=== PATIENT | female | born 1945 | race Caucasian/White ===

== ENCOUNTER → 2019-05-12 15:33 | Outpatient (CLI) | payer MEDICARE, SELFPAY ==
--- NOTE | 2019-05-12 15:46 | XR_ITS ---
XR hip RT 2-3V w/pelvis HISTORY: ITS.REASON: RT HIP PAIN,SLIPPED 05/07/19 ORDERING PHYSICIAN: Prosper Palacio PATIENT AGE: 73 years COMPARISON: None FINDINGS: No fracture or dislocation is evident. No significant degenerative change. No lytic or blastic change. Unremarkable soft tissues there is loss of disc space height with marginal spurring the lumbar spine at L4-5. IMPRESSION: No acute process involving the right hip or proximal right femur. L4-5 chronic degenerative disc disease.
== END ==
PROVIDERS: PCP Internal Medicine; Visit Provider Internal Medicine
DX: M25.551 Pain in right hip (principal)
CPT/HCPCS: 73502

== ENCOUNTER 2020-06-28 21:40 | Emergency (ER) | payer MEDICARE, SELFPAY ==
--- NOTE | 2020-06-28 21:54 | XR_ITS ---
PROCEDURE: XR KNEE LT 3V Referring Doctor: Felicity Madrigal Patient Age:74Y CLINICAL INDICATION: fall, left knee pain injury 20 minutes prior to ER arrival. Left knee pain pain posterior aspect of knee most pronounced. Legs feel swollen COMPARISON: No prior left knee studies CR LLR LOWER LEG-RT from 10/07/2016 CR [id number] KNEE-3 VIEWS-RT from 10/07/2016 FINDINGS: LEFT KNEE 3 view: AP lateral and oblique nonweightbearing performed today. No previous studies of the left knee but the are previous right knee studies for comparison with similar findings Obese appearing,large patient with degenerative changes at the left knee most pronounced at the medial compartment. Joint space narrowing the medial compartment with sclerosis bout the narrowed joint space here on this nonweightbearing film. Generous tricompartmental marginal osteophytes including some partially fragmented marginal osteophytes at the patellofemoral joint which appears old. Also note a particularly exuberant marginal osteophytes posteriorly as well as along the margins of the medial compartment. . Suspect mild to moderate joint effusion suprapatellar bursa.. no acute fracture or dislocation. No lytic or blastic change. There is normal mineralization. IMPRESSION: No acute fracture nor dislocation Prominent Degenerative Changes left knee: Most evident about the narrowed medial compartment Exuberant tricompartmental marginal osteophytes most evident about the patellofemoral joint and medial compartment. Large patient Suspect mild joint effusion suprapatellar bursa Dictated by: Nakul Alaniz MD 06/29/2020 17:07 Nakul Alaniz MD in [place] 06/29/2020 17:07
[2020-06-28 21:57] VITALS: BP 176/81; PULSE 109; RESP 18; TEMP 36.7; O2SAT 96; BMI 46.0
--- NOTE | 2020-06-28 21:57 | HMH.EDGENADL ---
ED Disposition Clinical Impression: Hematoma Disposition: Home, Self-Care Condition on Discharge: Good Instructions: How to Prevent Falls Referrals: Prosper Palacio [Primary Care Provider] - - Critical Care Critical Care Time: No Attestation: On 06/28/20, the high probability of a clinically significant, sudden or life threatening deterioration of the following system(s) required my full and direct attention, intervention and personal management. The time I documented below is in addition to time spent performing reported procedures but includes the following listed in this critical care notation. Medical Decision Making - Medical Records Medical records reviewed: Yes: I reviewed the patient's medical records. - Sunny Inquiry Pt receiving controlled substance: No Vital Signs: 06/28/20 21:57 06/28/20 22:00 06/28/20 23:07 Temperature 98.1 F Temperature Source Oral Pulse Rate Pulse Rate [Left Brachial] 109 H 98 H 100 H Respiratory Rate 18 17 18 Blood Pressure Blood Pressure [Left Arm] 176/81 H 128/68 114/82 Blood Pressure Mean [Left Arm] 112 88 92 Blood Pressure Source Blood Pressure Source [Left Arm] Automatic Cuff Automatic Cuff Automatic Cuff Blood Pressure Position Blood Pressure Position [Left Arm] Sitting Supine Sitting 02 Sat by Pulse Oximetry 96 95 98 Oxygen Delivery Method Room Air Room Air 06/28/20 23:41 06/28/20 23:57 Temperature 98.1 F Temperature Source Oral Pulse Rate 95 H Pulse Rate [Left Brachial] 97 H Respiratory Rate 17 17 Blood Pressure 152/76 H Blood Pressure [Left Arm] 150/78 H Blood Pressure Mean [Left Arm] 102 Blood Pressure Source Automatic Cuff Blood Pressure Source [Left Arm] Automatic Cuff Blood Pressure Position Sitting Blood Pressure Position [Left Arm] Sitting 02 Sat by Pulse Oximetry 98 Oxygen Delivery Method Room Air - Lab Data Lab Results 06/28/20 22:43: WBC 6.3, RBC 4.76, Hgb 14.1, Hct 42.1, MCV 88.4, MCH 29.6, MCHC 33.5, RDW 13.9, Plt Count 245, MPV 8.3, Neut % (Auto) 73.8, Lymph % (Auto) 15.6, [place] % (Auto) 5.2, Eos % (Auto) 4.9, Baso % (Auto) 0.5, Neut # (Auto) 4.7, Lymph # (Auto) 1.0, [place] # (Auto) 0.3, Eos # (Auto) 0.3, Baso # (Auto) 0.0 06/28/20 22:43: Sodium 140, Potassium 4.5, Chloride 101, Carbon Dioxide 28, Anion Gap 15.5 H, BUN 33 H, Creatinine 1.30 H, Estimated Creat Clear 31, Estimated GFR 40 L, Est GFR ( Amer) 48 L, Glucose 159 H, Calcium 9.4, Total Bilirubin 0.4, AST 39 H, ALT 21, Alkaline Phosphatase 52, Total Protein 7.2, Albumin 4.2, Globulin 3.0, Albumin/Globulin Ratio 1.4 Result diagrams: 06/28/20 22:43 06/28/20 22:43 Orders (Tests/Meds): ED MEDICATIONS Discontinued Medications Generic Name Dose Route Start Last Admin Trade Name Freq PRN Reason Stop Dose Admin Ioversol 75 ml 06/28/20 23:42 06/28/20 23:43 Rad-Optiray 350 100ml Vial IV 06/28/20 23:43 75 ml ONCE ONE Administration Protocol Sodium Chloride 10 ml 06/28/20 23:42 06/28/20 23:43 Rad-Saline Flush 10ml Syringe IV 06/28/20 23:43 10 ml ONCE ONE Administration ORDERS Category Date Time Status CT abdomen pelvis w con Stat Cat Scan 06/28/20 22:37 Taken Knee XR left 3 views [XR knee LT 3V] Stat Exams 06/28/20 21:54 Taken Medical Decision Narrative: The patient is a 74 year old female who presents after fall. The patient arrives awake, alert, stable. She has a lower abdominal wall hematoma with some tenderness. Also complains of some knee pain. X-ray of the knee unremarkable by my read other than some sever chronic OA. On reexamination patient complaining of increased suprapubic pain, it was felt that work up including labs and CT abdomen / pelvis should be obtained to evaluate for intraabdominal injury. CT scan was unremarkable except for incidental findings which do not require follow up (renal cysts, etc). Patient was discharged home with return precautions. General Adult HPI - General Stated
[2020-06-28 22:00] VITALS: BP 128/68; PULSE 98; RESP 17; O2SAT 95
--- NOTE | 2020-06-28 22:30 | PC.NURSE ---
RETURN FROM XRAY.
--- NOTE | 2020-06-28 22:37 | CT_ITS ---
Procedure: CT ABDOMEN PELVIS W CON Referring Doctor: Felicity Madrigal Patient Age:74Y CLINICAL INDICATION: fall, lower abd pain w abdominal wall hematoma Trauma lower abdomen fell on ballof the trailer hitch, a large abdominal wall hematoma below umbilicus, lower abdominal pain. COMPARISON: No exams were available for comparison TECHNIQUE: IV contrast utilized: 75 cc Optiray 350 . No enteric contrast Helical the the the the the axial images obtained with sagittal and coronal reformats. All CT scans at the facility use one or more dose reduction, viz: automated exposure control, ma/kV adjustment per patient size (including targeted exams where dose is matched to indication, i.e. head), or iterative reconstruction technique. FINDINGS: Lower thorax: No acute finding 6 mm calcified granuloma LLL left lung base. Heart normal size 2 ABDOMEN: No acute post-traumatic changes;. Solid organs appear intact and satisfactory on this postcontrast study. Liver: No acute findings. No masses or biliary dilatation. 15 mm benign-appearing hepatic cyst at right lobe, axial image 25. Measures fluid density. Gallbladder: Nondistended. No radio opaque stones. Common duct unremarkable Pancreas: No masses or peripancreatic fluid collections. Spleen: Intact. No acute findings. Granulomatous calcifications. E Adrenals: . adrenals generous bilaterally Right adrenal the 12 mm AP, 12 mm height subtle right adrenal nodule appears most likely benign adenoma, given its central low-density. tract ======= Kidneys/ureters: No acute findings. No calculi or obstruction. Numerous small bilateral renal cysts. Mild diffuse cortical thinning likely Right kidney: Numerous tiny cyst none measuring over 1 cm. The most notable cyst at upper pole posteriorly measures just less than 9 mm. Left kidney.:. Numerous tiny cysts, with largest measuring up to 8 mm at upper pole and mid left kidney. There is either a duplicated collecting system or parapelvic cyst accounting for the additional 2 cm fluid the focus at the inferior aspect left renal pelvis. No urinary tract calculi nor obstruction evident PELVIS: Small postmenopausal uterus.. No adnexal masses. No free fluid Bladder: Nondistended. No obvious stones or masses. GI tract: ===== Stomach: Upper normal wall thickness along lateral aspect/greater curvature of stomach-most likely reflecting lack of distension. Small bowel: Nondistended. Unremarkable no obvious mass or thickening. No evidence of appendicitis. Unremarkable base of appendix visualized Large bowel: Minimal stool. Colonic diverticulosis most evident at descending colon and sigmoid. Fatty infiltration of the right colon-nonspecific but can reflect chronic inflammation no current inflammatory process Peritoneum: No abnormal fluid collections. No obvious inflammatory changes. No free air. Lymph nodes: No enlarged lymph nodes apparent. The Vasculature: No evidence of abdominal aortic aneurysm. No retroperitoneal hemorrhage evident. Bones: No acute fracture multilevel degenerative disc changes, and spondylosis lumbar spine.. Multilevel facet hypertrophy. The the yields spinal stenosis most evident L3/4 in the L4/5. Transitional vertebra at lumbosacral junction Abdominal wall: A generous size hematoma with stranding LLQ seen involving the subcutaneous fat of the panniculus LLQ. The the hematoma itself measuring up to near 8 cm height and with and less than 2 cm AP. There is stranding and edema throughout this region and surrounding this central area reflecting the associated region of trauma and bruising. Minor associated edematous skin thickening period. . Small umbilical hernia also noted IMPRESSION:
[2020-06-28 22:51] LABS: Basophils % 0.5 % (0.1-2.0); Eosinophils # 0.3 K/mm3 (0.0-0.4); Eosinophils % 4.9 % (0.1-12.0); Hematocrit 42.1 % (37.0-47.0); Hemoglobin 14.1 g/dL (12.2-16.2); Lymphocytes % 15.6 % (10-50); Mean Corpuscular HGB Conc 33.5 g/dL (31.8-35.4); Mean Corpuscular Hemoglobin 29.6 pg (27.0-31.2); Mean Corpuscular Volume 88.4 fl (81-99); Mean Platelet Volume 8.3 fl (7.4-10.4); Monocytes # 0.3 K/mm3 (0.1-1.0); Monocytes % 5.2 % (1.7-9.3); Neutrophils # 4.7 K/mm3 (1.8-7.8); Neutrophils % 73.8 % (37.0-80.0); Platelet Count 245 K/mm3 (142-424); Red Blood Count 4.76 M/mm3 (4.20-5.40); Red Cell Distribution Width 13.9 % (11.5-17.5); White Blood Count 6.3 K/mm3 (4.8-10.8)
[2020-06-28 23:00] LABS: Alanine Aminotransferase 21 U/L (12-78); Albumin Level 4.2 g/dl (3.5-5.0); Albumin/Globulin Ratio 1.4 (1.1-1.8); Alkaline Phosphatase 52 U/L (38-126); Anion Gap 15.5 mEq/L (5-15); Aspartate Amino Transferase 39 U/L (14-36); Bilirubin,Total 0.4 mg/dl (0.2-1.3); Blood Urea Nitrogen 33 mg/dl (7-17); Calcium 9.4 mg/dl (8.4-10.2); Carbon Dioxide 28 mmol/L (22.0-30.0); Chloride 101 mmol/L (98-107); Creatinine Clearance Estimated 31 mL/min (50-200); Estimated Glomerular Filt Rate 40 ml/min (>60); GFR (African American) 48 ML/MIN (>60); Glucose 159 mg/dl (74-100); Potassium 4.5 mmoL/L (3.5-5.1); Sodium 140 mmol/L (136-145); Total Protein,Serum 7.2 g/dl (6.3-8.2)
[2020-06-28 23:07] VITALS: BP 114/82; PULSE 100; RESP 18; O2SAT 98
[2020-06-28 23:41] VITALS: BP 150/78; PULSE 97; RESP 17; O2SAT 98
[2020-06-28 23:57] VITALS: BP 152/76; PULSE 95; RESP 17; TEMP 36.7; O2SAT 97
== END 2020-06-29 00:03 | disposition home or self-care (01) ==
PROVIDERS: Emergency Provider Emergency Medicine; PCP Internal Medicine
DX: S30.1XXA Contusion of abdominal wall, initial encounter (principal); M25.562 Pain in left knee; W01.198A Fall on same level from slipping, tripping and stumbling with subsequent striking against other object, initial encounter; Y92.018 Other place in single-family (private) house as the place of occurrence of the external cause; E78.5 Hyperlipidemia, unspecified; I10 Essential (primary) hypertension; Z79.899 Other long term (current) drug therapy
CPT/HCPCS: 73562; 74177; 80053; 85025; 99283; Q9967

== ENCOUNTER → 2021-07-18 11:39 | Outpatient (CLI) | payer MEDICARE, SELFPAY | PROVIDERS: PCP Internal Medicine; Visit Provider Nurse Practitioner | DX: Z20.822 Contact with and (suspected) exposure to COVID-19 (principal) | CPT/HCPCS: C9803; U0003; U0005 ==

== ENCOUNTER → 2021-09-03 13:33 | Outpatient (CLI) | payer MEDICARE, SELFPAY ==
[2021-09-03 15:45] LABS: Alanine Aminotransferase 21 U/L (12-78); Albumin Level 3.9 g/dl (3.5-5.0); Albumin/Globulin Ratio 1.8 (1.1-1.8); Alkaline Phosphatase 42 U/L (38-126); Anion Gap 14.7 mEq/L (5-15); Aspartate Amino Transferase 30 U/L (14-36); Bilirubin,Total 0.4 mg/dl (0.2-1.3); Blood Urea Nitrogen 36 mg/dl (7-17); Calcium 9.1 mg/dl (8.4-10.2); Carbon Dioxide 23 mmol/L (22.0-30.0); Chloride 106 mmol/L (98-107); Chol/HDL Ratio 2.6 (1-3.5); Cholesterol 151 mg/dl (140-200); Estimated Glomerular Filt Rate 37 ml/min (>60); GFR (African American) 44 ML/MIN (>60); Globulin 2.2 g/dL (1.3-3.2); Glucose 110 mg/dl (74-100); HDL Cholesterol 58 mg/dl (40-60); Potassium 4.7 mmoL/L (3.5-5.1); Sodium 139 mmol/L (136-145); Total Protein,Serum 6.1 g/dl (6.3-8.2); Triglycerides 201 mg/dl (30-150); VLDL Cholesterol 40 mg/dL (0-40)
[2021-09-03 15:56] LABS: Direct LDL Cholesterol 65.16 mg/dL (100-129)
== END ==
PROVIDERS: Visit Provider Internal Medicine
DX: I10 Essential (primary) hypertension (principal); E78.5 Hyperlipidemia, unspecified; R73.01 Impaired fasting glucose; K21.9 Gastro-esophageal reflux disease without esophagitis
CPT/HCPCS: 80053; 80061

== ENCOUNTER → 2021-10-30 10:46 | Outpatient (CLI) | payer MEDICARE, SELFPAY | PROVIDERS: PCP Internal Medicine; Visit Provider Nurse Practitioner | DX: Z20.822 Contact with and (suspected) exposure to COVID-19 (principal) | CPT/HCPCS: C9803; U0003; U0005 ==

== ENCOUNTER → 2022-03-09 12:23 | Outpatient (CLI) | payer MEDICARE, SELFPAY ==
[2022-03-09 14:28] LABS: Basophils # 0.1 K/mm3 (0-0.2); Basophils % 1.2 % (0.1-2.0); Eosinophils # 0.3 K/mm3 (0.0-0.4); Eosinophils % 4.9 % (0.1-12.0); Hematocrit 42.7 % (37.0-47.0); Hemoglobin 14.1 g/dL (12.2-16.2); Lymphocytes # 1.4 K/mm3 (0.7-4.5); Lymphocytes % 26.6 % (10-50); Mean Corpuscular Hemoglobin 29.7 pg (27.0-31.2); Mean Platelet Volume 10.6 fl (7.4-10.4); Monocytes # 0.4 K/mm3 (0.1-1.0); Monocytes % 6.7 % (1.7-9.3); Neutrophils # 3.3 K/mm3 (1.8-7.8); Neutrophils % 60.6 % (37.0-80.0); Platelet Count 261 K/mm3 (142-424); Red Blood Count 4.74 M/mm3 (4.20-5.40); Red Cell Distribution Width 13.6 % (11.5-17.5); White Blood Count 5.4 K/mm3 (4.8-10.8)
[2022-03-09 14:34] LABS: Alanine Aminotransferase 23 U/L (12-78); Albumin Level 3.8 g/dl (3.5-5.0); Albumin/Globulin Ratio 1.7 (1.1-1.8); Alkaline Phosphatase 46 U/L (38-126); Anion Gap 14.1 mEq/L (5-15); Aspartate Amino Transferase 25 U/L (14-36); Bilirubin,Total 0.2 mg/dl (0.2-1.3); Blood Urea Nitrogen 29 mg/dl (7-17); Calcium 9.1 mg/dl (8.4-10.2); Carbon Dioxide 23 mmol/L (22.0-30.0); Chloride 106 mmol/L (98-107); Chol/HDL Ratio 2.4 (1-3.5); Cholesterol 133 mg/dl (140-200); Estimated Glomerular Filt Rate 37 ml/min (>60); GFR (African American) 44 ML/MIN (>60); Globulin 2.2 g/dL (1.3-3.2); Glucose 108 mg/dl (74-100); HDL Cholesterol 55 mg/dl (40-60); Potassium 4.1 mmoL/L (3.5-5.1); Sodium 139 mmol/L (136-145); Triglycerides 177 mg/dl (30-150); VLDL Cholesterol 35 mg/dL (0-40)
[2022-03-09 15:17] LABS: Hemoglobin A1C 5.9 % (4.0-6.0)
== END ==
PROVIDERS: PCP Internal Medicine; Visit Provider Internal Medicine
DX: I10 Essential (primary) hypertension (principal); R73.01 Impaired fasting glucose; E78.5 Hyperlipidemia, unspecified; M15.0 Primary generalized (osteo)arthritis
CPT/HCPCS: 80053; 80061; 83036; 85025

== ENCOUNTER → 2022-09-09 11:48 | Outpatient (CLI) | payer MEDICARE, SELFPAY ==
[2022-09-09 14:50] LABS: Alanine Aminotransferase 14 U/L (12-78); Albumin Level 4.1 g/dl (3.5-5.0); Albumin/Globulin Ratio 1.7 (1.1-1.8); Alkaline Phosphatase 60 U/L (38-126); Anion Gap 19.3 mEq/L (5-15); Aspartate Amino Transferase 23 U/L (14-36); Bilirubin,Total 0.5 mg/dl (0.2-1.3); Blood Urea Nitrogen 40 mg/dl (7-17); Calcium 9.5 mg/dl (8.4-10.2); Carbon Dioxide 26 mmol/L (22.0-30.0); Chloride 99 mmol/L (98-107); Chol/HDL Ratio 2.3 (1-3.5); Cholesterol 153 mg/dl (140-200); Estimated Glomerular Filt Rate 36 ml/min (>60); GFR (African American) 44 ML/MIN (>60); Globulin 2.4 g/dL (1.3-3.2); Glucose 98 mg/dl (74-100); HDL Cholesterol 66 mg/dl (40-60); Potassium 4.3 mmoL/L (3.5-5.1); Sodium 140 mmol/L (136-145); Total Protein,Serum 6.5 g/dl (6.3-8.2); Triglycerides 138 mg/dl (30-150); VLDL Cholesterol 28 mg/dL (0-40)
== END ==
PROVIDERS: PCP Internal Medicine; Visit Provider Internal Medicine
DX: I10 Essential (primary) hypertension (principal); E78.5 Hyperlipidemia, unspecified; R73.01 Impaired fasting glucose
CPT/HCPCS: 80053; 80061

== ENCOUNTER → 2023-03-16 12:55 | Outpatient (CLI) | payer MEDICARE, SELFPAY ==
[2023-03-16 13:48] LABS: Basophils % 0.5 % (0.1-2.0); Eosinophils # 0.3 K/mm3 (0.0-0.4); Eosinophils % 5.6 % (0.1-12.0); Hematocrit 42.4 % (37.0-47.0); Hemoglobin 13.3 g/dL (12.2-16.2); Lymphocytes # 0.9 K/mm3 (0.7-4.5); Lymphocytes % 20.8 % (10-50); Mean Corpuscular HGB Conc 31.5 g/dL (31.8-35.4); Mean Corpuscular Hemoglobin 28.6 pg (27.0-31.2); Mean Corpuscular Volume 90.7 fl (81-99); Mean Platelet Volume 9.7 fl (7.4-10.4); Monocytes # 0.3 K/mm3 (0.1-1.0); Monocytes % 7.1 % (1.7-9.3); Platelet Count 266 K/mm3 (142-424); Red Blood Count 4.67 M/mm3 (4.20-5.40); Red Cell Distribution Width 13.4 % (11.5-17.5); White Blood Count 4.5 K/mm3 (4.8-10.8)
[2023-03-16 14:46] LABS: Alanine Aminotransferase 18 U/L (12-78); Albumin Level 3.9 g/dl (3.5-5.0); Albumin/Globulin Ratio 1.6 (1.1-1.8); Alkaline Phosphatase 44 U/L (38-126); Aspartate Amino Transferase 29 U/L (14-36); Bilirubin,Total 0.4 mg/dl (0.2-1.3); Blood Urea Nitrogen 29 mg/dl (7-17); Calcium 8.9 mg/dl (8.4-10.2); Carbon Dioxide 27 mmol/L (22.0-30.0); Chloride 106 mmol/L (98-107); Chol/HDL Ratio 1.9 (1-3.5); Cholesterol 157 mg/dl (140-200); Estimated Glomerular Filt Rate 40 ml/min (>60); GFR (African American) 48 ML/MIN (>60); Globulin 2.4 g/dL (1.3-3.2); Glucose 92 mg/dl (74-100); HDL Cholesterol 84 mg/dl (40-60); Sodium 142 mmol/L (136-145); Total Protein,Serum 6.3 g/dl (6.3-8.2); Triglycerides 129 mg/dl (30-150); VLDL Cholesterol 26 mg/dL (0-40)
[2023-03-16 14:57] LABS: Direct LDL Cholesterol 56.82 mg/dL (100-129)
== END ==
PROVIDERS: PCP Internal Medicine; Visit Provider Internal Medicine
DX: I10 Essential (primary) hypertension (principal); E78.5 Hyperlipidemia, unspecified; R73.01 Impaired fasting glucose; M17.0 Bilateral primary osteoarthritis of knee
CPT/HCPCS: 80053; 80061; 85025

== ENCOUNTER → 2023-05-04 11:55 | Outpatient (CLI) | payer MEDICARE, SELFPAY ==
[2023-05-04 18:35] LABS: Influenza A, PCR Not Detected (NotDetected); Influenza B, PCR Not Detected (NotDetected)
[2023-05-04 18:57] LABS: Coronavirus 19, PCR Detected (NotDetected)
== END ==
PROVIDERS: PCP Internal Medicine; Visit Provider Internal Medicine
DX: U07.1 COVID-19 (principal)
CPT/HCPCS: 87636

== ENCOUNTER → 2023-09-15 09:42 | Outpatient (CLI) | payer MEDICARE, SELFPAY ==
--- NOTE | 2023-09-15 09:55 | XR_ITS ---
FINAL REPORT CLINICAL HISTORY: COUGH x 15 days. non smoker FINDINGS: TWO-VIEW CHEST The heart size is normal. The mediastinum is normal. The lungs are clear. There is no pneumothorax. IMPRESSION: No acute cardiopulmonary process. Reviewed, Interpreted and Dictated by Nithin Raza MD Transcribed by Grace Fox Authenticated and . [facility]
[2023-09-15 13:34] LABS: Chloride 108 mmol/L (98-107)
[2023-09-15 13:35] LABS: Potassium 5.5 mmoL/L (3.5-5.1); Sodium 139 mmol/L (136-145)
[2023-09-15 13:37] LABS: Alanine Aminotransferase 25 U/L (12-78); Albumin Level 3.6 g/dl (3.5-5.0); Albumin/Globulin Ratio 1.5 (1.1-1.8); Alkaline Phosphatase 43 U/L (38-126); Anion Gap 9.5 mEq/L (5-15); Aspartate Amino Transferase 29 U/L (14-36); Bilirubin,Total 0.5 mg/dl (0.2-1.3); Blood Urea Nitrogen 26 mg/dl (7-17); Carbon Dioxide 27 mmol/L (22.0-30.0); Estimated Glomerular Filt Rate 40 ml/min (>60); GFR (African American) 48 ML/MIN (>60); Globulin 2.4 g/dL (1.3-3.2); Triglycerides 191 mg/dl (30-150); VLDL Cholesterol 38 mg/dL (0-40)
[2023-09-15 13:38] LABS: Calcium 8.6 mg/dl (8.4-10.2); Chol/HDL Ratio 2.7 (1-3.5); Cholesterol 175 mg/dl (140-200); Glucose 93 mg/dl (74-100); HDL Cholesterol 66 mg/dl (40-60)
== END ==
PROVIDERS: PCP Internal Medicine; Visit Provider Internal Medicine
DX: R05.9 Cough, unspecified (principal); J45.901 Unspecified asthma with (acute) exacerbation; I10 Essential (primary) hypertension; E78.5 Hyperlipidemia, unspecified; M15.0 Primary generalized (osteo)arthritis; J30.9 Allergic rhinitis, unspecified; K21.9 Gastro-esophageal reflux disease without esophagitis
CPT/HCPCS: 71046; 80053; 80061

== ENCOUNTER 2023-11-17 14:40 | Outpatient (CLI) | payer MEDICARE, SELFPAY ==
--- NOTE | 2023-11-17 14:52 | XR_ITS ---
FINAL REPORT CLINICAL HISTORY: LT KNEE PAIN/DJD COMPARISON: 06/28/2020 FINDINGS: Left knee Three views were obtained. There is no acute fracture or dislocation. There is severe tricompartment degenerative change, similar to prior. There is mild lateral subluxation. Small joint effusion is identified. IMPRESSION: Degenerative joint disease, similar to prior. Reviewed, Interpreted and Dictated by Codie Zambrano MD Transcribed by Grace Fox Authenticated and [facility]
== END 2023-11-17 23:59 ==
PROVIDERS: PCP Internal Medicine; Visit Provider Internal Medicine
DX: M25.562 Pain in left knee (principal); M17.0 Bilateral primary osteoarthritis of knee
CPT/HCPCS: 73562

== ENCOUNTER 2024-07-20 13:59 | Emergency (ER) | payer MEDICARE, SELFPAY ==
[2024-07-20 14:00] VITALS: BP 146/76; PULSE 117; RESP 18; TEMP 36.7; O2SAT 95; BMI 43.9
--- NOTE | 2024-07-20 14:19 | PC.NURSE ---
Dr. Posadas at bedside for pt eval
--- NOTE | 2024-07-20 14:21 | XR_ITS ---
FINAL REPORT CLINICAL HISTORY: pain, worse with weight bearing FINDINGS: LEFT KNEE 3 views of the left knee were obtained. There is no acute fracture or dislocation. There is moderate medial and lateral subchondral joint space narrowing. Osteophytes are seen at the medial and lateral joint margin, lateral femoral condyle and undersurface of the patella. There is a small joint effusion. Soft tissues are unremarkable. IMPRESSION: Degenerative changes without acute bony abnormality. Reviewed, Interpreted and Dictated by Nithin Raza MD Transcribed by Laisha Carnes Authenticated and [facility]
--- NOTE | 2024-07-20 14:21 | XR_ITS ---
FINAL REPORT CLINICAL HISTORY: pain, worse with weight bearing FINDINGS: LEFT FEMUR 2 views were obtained. There is no acute fracture or dislocation. Visualized joint spaces are normally aligned. Soft tissues are unremarkable. IMPRESSION: No acute bony abnormality. Reviewed, Interpreted and Dictated by Nithin Raza MD Transcribed by Laisha Carnes Authenticated and [facility]
--- NOTE | 2024-07-20 14:21 | XR_ITS ---
FINAL REPORT CLINICAL HISTORY: pain, worse with weight bearing FINDINGS: LEFT HIP: Two views of the left hip demonstrate no acute fracture or dislocation. There are mild degenerative changes.. The visualized bony structures are well aligned. No soft tissue abnormality is seen. IMPRESSION: No acute bony abnormality. Reviewed, Interpreted and Dictated by Nithin Raza MD Transcribed by Laisha Carnes Authenticated and . [facility]
--- NOTE | 2024-07-20 14:21 | XR_ITS ---
FINAL REPORT CLINICAL HISTORY: pain, worse with weight bearing COMPARISON: None FINDINGS: Two views of the left tibia/fibula were obtained. There is no acute fracture or dislocation. There are advanced hypertrophic changes of osteoarthritis in the medial and lateral compartment joint spaces. Osteophytes are noted at the joint margins. There is no soft tissue abnormality. IMPRESSION: Advanced hypertrophic changes without acute bony abnormality. Reviewed, Interpreted and Dictated by Nithin Raza MD Transcribed by Latrice Nagel Authenticated and [facility]
--- NOTE | 2024-07-20 14:25 | ED_ITS ---
Discharge Plan Disposition Patient Disposition: Home, Self-Care Prescriptions Prescriptions: No Action amlodipine-benazepril 5-10 mg capsule 1 cap PO ONCE naproxen 500 mg tablet 500 mg PO Q12H PRN (Reason: pain) triamterene-hydrochlorothiazid 75-50 mg tablet 1 tab PO QAM simvastatin 20 mg tablet 20 mg PO QAM omeprazole 20 mg capsule,delayed release(DR/EC) 20 mg PO ONCE vitamin A-vit C-vit E-zinc-Cu tablet 2 tab PO BID prednisone 10 MG tablet 10 mg PO BID Qty: 10 0RF azithromycin [Zithromax] 250 MG tablet 250 mg PO UD DOSE PK Qty: 6 0RF Rx Instructions: Take two (2) tablets today, then one (1) tablet days #2 thru #5 Referrals Follow up/Referrals: Prosper Palacio MD [Primary Care Provider] - See instructions Activity Restrictions/Add. Instructions Additional Instructions/Restrictions: There is no evidence of an acute emergency associated with your legs such as acute arterial occlusion, deep vein thrombosis, fracture or dislocation, infection. Please follow-up with primary care doctor or orthopedic surgery if you continue to have pain in your left knee. Clinical Impressions Clinical Impression: Leg pain, left Print Language Print Language: Korean Discharge ED Provider: Kate Posadas General Adult HPI <Kate Posadas DO - Last Filed: 07/20/24 15:20> General Chief complaint: Extremity Problem,Nontraumatic Stated complaint: Left leg pain,no injury Time Seen by Provider: 07/20/24 14:07 Mode of Arrival: Wheelchair Source of Information: Patient and Relative Limitations: No Limitations Description of Symptoms (Recalled from ER Triage Doc. by RN): c/o left knee pain that goes down her calf started one hour ago. Pt denies any injury, she was getting out of a car when the pain started. Previously the pt had been walking around the [place] with no issues. History of Present Illness HPI narrative: This patient is a 79-year-old female with a history of hypertension, hyperlipidemia, obesity, and arthritis presenting to the emergency department for evaluation with concern for atraumatic left lower extremity pain. Patient reports she was [place] [employer] [place] no falls or injuries when she suddenly experienced left knee pain going down and her left leg on the posterior aspect and into her foot. She states that her foot feels like it is going numb. She denies ever experiencing any like this in the past. No back pain, saddle anesthesia, incontinence, urinary retention, or other concerns. She is actively crying because the pain is so severe. Related Data Home Medications ?Medication ?Instructions ?Recorded ?Confirmed amlodipine 5 mg-benazepril 10 mg 1 cap PO ONCE blood pressure 01/17/18 06/12/24 capsule naproxen 500 mg tablet 500 mg PO Q12H PRN pain 01/17/18 06/12/24 omeprazole 20 mg capsule,delayed 20 mg PO ONCE stomach 01/17/18 06/12/24 release simvastatin 20 mg tablet 20 mg PO QAM cholesterole 01/17/18 06/12/24 triamterene 75 1 tab PO QAM Fluid 01/17/18 06/12/24 mg-hydrochlorothiazide 50 mg tablet vitamin A-vit C-vit E-zinc-Cu 2 tab PO BID Supplement 05/16/18 06/12/24 tablet Previous Rx's ?Medication ?Instructions ?Recorded azithromycin 250 mg tablet 250 mg PO UD DOSE PK #6 tabs 01/25/19 (Zithromax) prednisone 10 mg tablet 10 mg PO BID #10 tabs 01/25/19 Allergies Allergy/AdvReac Type Severity Reaction Status Date / Time Penicillins Allergy Unknown Verified 06/12/24 13:06 allergy reaction PFSH <Kate Posadas DO - Last Filed: 07/20/24 15:20> [facility] Disclaimer: The information contained in this section may have been updated after the patient was seen, as this information can be updated by other users. Social History Smoking Status: Never smoker second hand exposure: No alcohol intake: never current occupational status: retired Travel in the last 8 weeks: None household members: friend(s) housing: house current occupational exposures/hazards: No caffeine: Yes Other Medical History Have you received the Flu Vaccine for this season: Yes Have you received the Pneumonia Vaccine: Yes <Kate Posadas DO - Last Filed: 07/20/24 15:20> ROS Obtained: Yes All systems reviewed & no additional complaints except as documented Physical Exam <Kate Posadas DO - Last Filed: 07/20/24 15:20> General General appearance: alert and anxious Comment: Very anxious appearing, crying out in pain Head Head exam: atraumatic and normocephalic Eye Eye exam: Present normal appearance, PERRL and EOMI ENT ENT exam: Present normal exam, normal oropharynx, mucous membranes moist and normal external ear exam Neck Neck exam: Present normal inspection, full ROM and trachea midline; Absent tenderness Chest Chest inspection: Present normal inspection and symmetric chest wall rise; Absent tenderness Respiratory Respiratory exam: Present normal lung sounds bilaterally; Absent respiratory distress, wheezes, stridor or accessory muscle use Cardiovascular Cardiovascular exam: Present regular rate and normal rhythm Abdominal Exam Abdominal exam: Present soft; Absent distention, tenderness or guarding Extremities Exam Extremities exam: Present full ROM, tenderness (posterior to L knee), normal capillary refill and other (Full intact range of motion of the left lower extremity. Patient has some tenderness palpation behind the left knee but otherwise no appreciable tenderness and no skin color changes. Great distal puls es, warm and well perfused); Absent edema, joint swelling, calf tenderness or cyanosis Back Exam Back exam: Present normal inspection and full ROM; Absent tenderness Neurological Exam Neurological exam: Present alert, oriented X3, CN II-XII intact and normal gait; Absent motor sensory deficit Psychiatric Psychiatric exam: Present anxious Skin Skin exam: Present warm, dry and normal color; Absent rash or erythema Medical Decision Making <Kate Posadas, DO - Last Filed: 07/20/24 15:20> Medical Records Medical records reviewed: Yes I reviewed the patient's medical records. Screening: Per USPSTF and CDC recommendations, given the prevalence of disease in our reg ion, it is our hospital?s policy to screen for HIV and viral Hepatitis for all patients aged 18 and over and those with ongoing risk factors. Sunny Inquiry Pt receiving controlled substance: No Vital Signs: 07/20/24 14:00 07/20/24 14:31 Temperature 98.0 F Temperature Source Oral Pulse Rate 110 H Pulse Rate [Left Radial] 117 H Respiratory Rate 18 Blood Pressure 133/97 H Blood Pressure [Right Arm] 146/76 H Blood Pressure Mean [Right Arm] 99 Blood Pressure Source [Right Arm] Automatic Cuff Blood Pressure Position [Right Arm] Sitting 02 Sat by Pulse Oximetry 95 97 Oxygen Delivery Method Room Air Room Air Lab Data Lab results reviewed: Yes I reviewed the patient's lab results. Orders (Tests/Meds): ED MEDICATIONS Discontinued Medications Generic Name Dose Route Start Last Admin Trade Name Patricia PRN Reason Stop Dose Admin Acetaminophen 1,000 mg 07/20/24 14:30 07/20/24 14:32 Acetaminophen 500mg Tab PO 07/20/24 14:31 1,000 mg ONCE ONE Administration Ketorolac Tromethamine 30 mg 07/20/24 14:24 07/20/24 14:31 Ketorolac 30mg/Ml Vial IM 07/20/24 14:25 30 mg ONCE ONE Administration Methocarbamol 500 mg 07/20/24 14:25 07/20/24 14:31 Methocarbamol 500mg Tablet PO 07/20/24 14:26 500 mg ONCE ONE Administration Oxycodone HCl 5 mg 07/20/24 14:24 07/20/24 14:31 Oxycodone 5mg Immediate Release Tablet PO 07/20/24 14:25 5 mg ONCE ONE Administration ORDERS Category Date Time Status Femur XR left 2 views [XR femur LT 2V] Stat Exams 07/20/24 14:21 Completed Hip XR left minimum 2 views [XR hip LT 2-3V w/pelvis] Exams 07/20/24 14:21 Completed Stat Knee XR left 3 views [XR knee LT 3V] Stat Exams 07/20/24 14:21 Completed Tibia/fibula XR left 2 views [XR tibia fibula LT 2V] Exams 07/20/24 14:21 Taken Stat CA venous doppler LE LT Stat Y 07/20/24 14:29 Completed Medical Decision Narrative: In summary, this patient is a 79-year-old female presenting to the Emergency Department for evaluation of atraumatic left leg pain that started suddenly. Differential diagnoses considered include but are not limited to stress fracture, contusion, strain/sprain, sciatica, DVT. Ruling out the most morbid conditions drove assessment. It should be noted patient's history includes obesity, hypertension, and hyperlipidemia which may or may not be at goal therapy. This complicates all aspects of care by increasing patient's risk for morbidity. On exam, the patient is lying in bed and is actively crying out in pain. She is very anxious appearing and states she is afraid to be in the hospital because she is never had to be and once that she was born. She has a reassuring exam with no redness, warmth, skin color changes of her extremity. She is neurovascularly intact distally. She has tenderness to palpation behind the left knee but no other acutely concerning abnormalities. I feel she likely has sciatica/nerve pain versus potentially bursitis, but will obtain XR to rule out pathologic fx as well as DVT US. Low concern for arterial insufficiency with reassuring exam. She is given oral oxycodone, Bactrim, Tylenol, and Toradol for symptomatic improvement. Ultimately[facility]. <Abdoul Blair MD - Last Filed: 07/20/24 16:42> Vital Signs: 07/20/24 14:00 07/20/24 14:31 Temperature 98.0 F Temperature Source Oral Pulse Rate 110 H Pulse Rate [Left Radial] 117 H Respiratory Rate 18 Blood Pressure 133/97 H Blood Pressure [Right Arm] 146/76 H Blood Pressure Mean [Right Arm] 99 Blood Pressure Source [Right Arm] Automatic Cuff Blood Pressure Position [Right Arm] Sitting 02 Sat by Pulse Oximetry 95 97 Oxygen Delivery Method Room Air Room Air Orders (Tests/Meds): ED MEDICATIONS Discontinued Medications Generic Name Dose Route Start Last Admin Trade Name Víctorq PRN Reason Stop Dose Admin Acetaminophen 1,000 mg 07/20/24 14:30 07/20/24 14:32 Acetaminophen 500mg Tab PO 07/20/24 14:31 1,000 mg ONCE ONE Administration Ketorolac Tromethamine 30 mg 07/20/24 14:24 07/20/24 14:31 Ketorolac 30mg/Ml Vial IM 07/20/24 14:25 30 mg ONCE ONE Administration Methocarbamol 500 mg 07/20/24 14:25 07/20/24 14:31 Methocarbamol 500mg Tablet PO 07/20/24 14:26 500 mg ONCE ONE Administration Oxycodone HCl 5 mg 07/20/24 14:24 07/20/24 14:31 Oxycodone 5mg Immediate Release Tablet PO 07/20/24 14:25 5 mg ONCE ONE Administration ORDERS Category Date Time Status Femur XR left 2 views [XR femur LT 2V] Stat Exams 07/20/24 14:21 Completed Hip XR left minimum 2 views [XR hip LT 2-3V w/pelvis] Exams 07/20/24 14:21 Completed Stat Knee XR left 3 views [XR knee LT 3V] Stat Exams 07/20/24 14:21 Completed Tibia/fibula XR left 2 views [XR tibia fibula LT 2V] Exams 07/20/24 14:21 Taken Stat CA venous doppler LE LT Stat Y 07/20/24 14:29 Completed Medical Decision Narrative: In summary, this patient is a 79-year-old female presenting to the Emergency Department for evaluation of atraumatic left leg pain that started suddenly. Differential diagnoses considered include but are not limited to stress fracture, contusion, strain/sprain, sciatica, DVT. Ruling out the most morbid conditions drove assessment. It should be noted patient's history includes obesity, hypertension, and hyperlipidemia which may or may not be at goal therapy. This complicates all aspects of care by increasing patient's risk for morbidity. On exam, the patient is lying in bed and is actively crying out in pain. She is very anxious appearing and states she is afraid to be in the hospital because she is never had to be and once that she was born. She has a reassuring exam with no redness, warmth, skin color changes of her extremity. She is neurovascularly intact distally. She has tenderness to palpation behind the left knee but no other acutely concerning abnormalities. I feel she likely has sciatica/nerve pain versus potentially bursitis, but will obtain XR to rule out pathologic fx as well as DVT US. Low concern for arterial insufficiency with reassuring exam. She is given oral oxycodone, Bactrim, Tylenol, and Toradol for symptomatic improvement. Ultimately, patient care signed to the oncoming provider, Dr. Blair This is Dr. Blair I took over from Dr. Posadas pending final results from u ltrasound and x-rays. X-rays are personally interpreted which show no fracture or dislocation there are some degenerative changes which are likely the cause of the patient's symptoms. On my reassessment patient has good warm perfusion normal pulses soft compartments no soft tissue abnormalities to suggest deep infection etc. She status states that she feels much better. Workup is essentially normal ultrasound shows no DVT. She has been advised to follow-up with primary care doctor or orthopedic surgeon. She does have some advanced degenerative changes which may take because of her pain. She was discharged in stable condition. Critical Care <Kate Posadas, DO - Last Filed: 07/20/24 15:20> Critical Care Time Critical Care Time: No
--- NOTE | 2024-07-20 14:29 | CA_ITS ---
FINAL REPORT TECHNIQUE: Ultrasound images of the deep venous system were obtained from the left groin to the calf veins. CLINICAL HISTORY: atraumatic L lower leg pain, Obesity FINDINGS: The deep venous system is normally compressible. Normal flow is identified. IMPRESSION: No evidence of left lower extremity DVT. Reviewed, Interpreted and Dictated by Nithin Raza MD Transcribed by Grace Fox Authenticated and [facility]
[2024-07-20 14:31] VITALS: BP 133/97; PULSE 110; O2SAT 97
[2024-07-20] MEDS: OXYCODONE 5MG IMMEDIATE RELEASE TABLET 5 MG PO (14:31)
[2024-07-20] MEDS: KETOROLAC 30MG/ML VIAL 30 MG IM (14:31)
[2024-07-20] MEDS: METHOCARBAMOL 500MG TABLET 500 MG PO (14:31)
[2024-07-20] MEDS: ACETAMINOPHEN 500MG TAB 1000 MG PO (14:32)
[2024-07-20 16:46] VITALS: BP 142/78; PULSE 80; RESP 16; TEMP 36.7; O2SAT 97
== END 2024-07-20 16:54 | disposition home or self-care (01) ==
PROVIDERS: Emergency Provider Emergency Medicine; PCP Internal Medicine
DX: M79.605 Pain in left leg (principal)
CPT/HCPCS: 73502; 73552; 73562; 73590; 93971; 96372; 99284; J1885